=== PATIENT | male | born 1990 | race Caucasian/White ===

== ENCOUNTER 2017-08-29 03:40 | Observation (INO) | payer BC ==
[2017-08-29] MEDS ORDERED: Ondansetron ODT TAB* 4 MG PO ONE (04:06)
[2017-08-29] MEDS ORDERED: Meclizine TAB* 12.5 MG PO ONE (04:07)
[2017-08-29 04:44] LABS: ABS Basophils 0.1 10^3/ul (0-0.2); ABS Eosinophils 0.2 10^3/ul (0-0.6); ABS Lymphocytes 1.6 10^3/ul (1.0-4.8); ABS Monocytes 0.7 10^3/ul (0-0.8); ABS Nucleated RBC 0 10^3/ul; Eosinophil % 1.8 % (0-6); Hematocrit 39 % (42-52); Hemoglobin 13.7 g/dl (14.0-18.0); Lymphocyte % 19.1 % (25-47); Mean Corpuscular HGB Conc 35 g/dl (31-36); Mean Corpuscular Hemoglobin 30 pg (27-31); Mean Corpuscular Volume 87 fL (80-94); Mean Platelet Volume 8 um3 (7.4-10.4); Nucleated Red Blood Cells % 0; Platelet Count 288 10^3/ul (150-450); Red Blood Count 4.51 10^6/ul (4.0-5.4); Red Cell Distribution Width 13 % (10.5-15); White Blood Count 8.6 10^3/ul (3.5-10.8)
[2017-08-29 04:59] LABS: EGFR Non-African American 94.7 (>60)
[2017-08-29] MEDS ORDERED: Diazepam SYRINGE* 5 MG/ML 2 ML SYRINGE (10 MG total) IV ONE (05:56)
--- NOTE | 2017-08-29 06:42 | ED ---
Mitch Martínez Gabriel, scribed for Jose Alfredo Keith on 08/29/17 at 0402 . Dizziness - HPI Summary HPI Summary: This patient is a 27 year old M presenting to [facility] accompanied by his significant other with a chief complaint of dizziness since [place]. Symptoms are aggravated by moving his head rapidly. Patient reports nausea. Patient denies fever, CP, and SOB. Patient had two teeth pulled on 08/26/17 and is having dizzy spells he describes as the room spinning. - History Of Current Complaint Chief Complaint: EDDizziness Stated Complaint: DIZZY SPELLS/2 DAYS Time Seen by Provider: 08/29/17 03:56 Hx Obtained From: Patient Onset/Duration: Suddenly Timing: Constant Severity Initially: Moderate Severity Currently: Moderate Character: Room Spinning Aggravating Factor(s): Change In Head Position Associated Signs And Symptoms: Positive: Nausea, Vomiting. Negative: Fever - Allergies/Home Medications Allergies/Adverse Reactions: Allergies Allergy/AdvReac Type Severity Reaction Status Date / Time Erythromycin [From Pediazole] Allergy Intermediate Hives Verified 08/13/14 07:25 Sulfisoxazole Allergy Intermediate Hives Verified 08/13/14 07:25 [From Pediazole] PMH/Surg Hx/FS Hx/Imm Hx Endocrine/Hematology History: Denies: Hx Diabetes, Hx Thyroid Disease Cardiovascular History: Denies: Hx Hypertension Respiratory History: Denies: Hx Asthma, Hx Chronic Obstructive Pulmonary Disease (COPD) GI History: Denies: Hx Ulcer - Cancer History Cancer Type, Location and Year: last tetanus 2 0r 3 yrs ago - Surgical History Surgery Procedure, Year, and Place: tubes in ears as a child - Immunization History Date of Tetanus Vaccine: unk Date of Influenza Vaccine: unk Infectious Disease History: No Infectious Disease History: Reports: History Other Infectious Disease - lyme in high school Denies: Hx Hepatitis, Hx Human Immunodeficiency Virus (HIV), Traveled Outside the [place] in Last 30 Days - Family History Known Family History: Positive: Unknown - patient states he is unsure, poor historian - Social History Alcohol Use: None Substance Use Type: Reports: None Smoking Status (MU): Never Smoked Tobacco Type: eCigarettes Review of Systems Negative: Fever Negative: Chest Pain Negative: Shortness Of Breath Positive: Nausea Neurological: Other - dizziness All Other Systems Reviewed And Are Negative: Yes Physical Exam - Summary Physical Exam Summary: Appearance: Well appearing, no pain distress Skin: warm, dry, reflects adequate perfusion Head/face: normal Eyes: EOMI, [place] ENT: normal Neck: supple, non-tender Respiratory: CTA, breath sounds present Cardiovascular: RRR, pulses symmetrical Abdomen: non-tender, soft Bowel: present Musculoskeletal: normal, strength/ROM intact Neuro: normal, sensory motor intact, A&Ox3 Triage Information Reviewed: Yes Vital Signs Reviewed: Yes Diagnostics - Laboratory Lab Results: Lab Results 08/29/17 08/29/17 Range/Units 04:32 04:32 WBC 8.6 (3.5-10.8) 10^3/ul RBC 4.51 (4.0-5.4) 10^6/ul Hgb 13.7 L (14.0-18.0) g/dl Hct 39 L (42-52) % MCV 87 (80-94) fL MCH 30 (27-31) pg MCHC 35 (31-36) g/dl RDW 13 (10.5-15) % Plt Count 288 (150-450) 10^3/ul MPV 8 (7.4-10.4) um3 Neut % (Auto) 70.0 (38-83) % Lymph % (Auto) 19.1 L (25-47) % [place] % (Auto) 8.1 (1-9) % Eos % (Auto) 1.8 (0-6) % Baso % (Auto) 1.0 (0-2) % Absolute Neuts (auto) 6.0 (1.5-7.7) 10^3/ul Absolute Lymphs (auto) 1.6 (1.0-4.8) 10^3/ul Absolute Monos (auto) 0.7 (0-0.8) 10^3/ul Absolute Eos (auto) 0.2 (0-0.6) 10^3/ul Absolute Basos (auto) 0.1 (0-0.2) 10^3/ul Absolute Nucleated RBC 0 10^3/ul Nucleated RBC % 0 Sodium 137 (133-145) mmol/L Potassium 4.2 (3.5-5.0) mmol/L Chloride 104 (101-111) mmol/L Carbon Dioxide 28 (22-32) mmol/L Anion Gap 5 (2-11) mmol/L BUN 20 (6-24) mg/dL Creatinine 0.96 (0.67-1.17) mg/dL Est GFR ( Amer) 121.8 (>60) Est GFR (Non-Af Amer) 94.7 (>60) BUN/Creatinine Ratio 20.8 H (8-20) Glucose 95 (70-100) mg/dL Calcium 9.8 (8.6-10.3) mg/dL Total Bilirubin 0.50 (0.2-1.0) mg/dL AST 31 (13-39) U/L ALT 44 (7-52) U/L Alkaline Phosphatase 68 (34-104) U/L Troponin I 0.00 (<0.04) ng/mL Total Protein 7.2 (6.4-8.9) g/dL Albumin 4.4 (3.2-5.2) g/dL Globulin 2.8 (2-4) g/dL Albumin/Globulin Ratio 1.6 (1-3) Result Diagrams: 08/29/17 04:32 08/29/17 04:32 Lab Statement: Any lab studies that have been ordered have been reviewed, and results considered in the medical decision making process. - EKG 04:21 Cardiac Rate: NL EKG Rhythm: Sinus Rhythm EKG Interpretation: No acute changes Dizzy Course/Dx - Diagnoses Provider Diagnoses: Vertigo Discharge - Discharge Plan Condition: Stable Disposition: OTHER Discharge Disposition Comment: Patient is signed out to Dr. Pierre, pending disposition, awaiting imaging a Referrals: No Primary Care Phys,NOPCP [Primary Care Provider] - The documentation as recorded by the Mitch pollock Gabriel accurately reflects the service I personally performed and the decisions made by Sagar morrow Emmanuel.
[2017-08-29] MEDS ORDERED: Ondansetron INJ* 2 MG/ML VIAL IV ONE ×2 (06:45→10:04)
[2017-08-29] MEDS ORDERED: Diazepam INJ (NF) 5 MG/ML 10 ML VIAL (50 MG TOTAL) IV ONE (07:00)
[2017-08-29] MEDS ORDERED: Metoclopramide IV* 5 MG/ML 2 ML VIAL IV ONE (07:09)
[2017-08-29] MEDS ORDERED: Metoclopramide IV* 5 MG/ML 2 ML VIAL ONE (07:10)
[2017-08-29] MEDS ORDERED: LORazepam INJ* 2 MG/ML 1 ML VIAL IV PUSH ONE (07:51)
[2017-08-29] MEDS ORDERED: PROCHLORPERAZINE INJ 5 MG/ML 2 ML VIAL IV PRN (10:09)
[2017-08-29] MEDS ORDERED: Ondansetron INJ* 2 MG/ML VIAL IV PRN (10:09)
--- NOTE | 2017-08-29 10:59 | ED ---
Devendra Martínez Tecjoon, scribed for Kevin Pierre MD on 08/29/17 at 0823 . Progress - Progress Note Progress Note: This patient was signed out by Dr. Keith at end of shift, awaiting disposition and diagnosis. Re-Eval at 0825. Patient continues to have dizziness, nausea, vomiting. Patient states "room is spinning" PHYSICAL EXAM VITAL SIGNS: Reviewed. GENERAL: Patient is an obese male who is lying in the stretcher. Patient is not in any acute respiratory distress. HEAD AND FACE: No signs of trauma. No ecchymosis, hematomas or skull depressions. No sinus tenderness. EYES: PERRLA, EOMI x 2, No injected conjunctiva, no nystagmus. EARS: Hearing grossly intact. Ear canals and tympanic membranes are within normal limits. MOUTH: Oropharynx within normal limits. NECK: Supple, trachea is midline, no adenopathy, no JVD, no carotid bruit, no c- spine tenderness, neck with full ROM. CHEST: Symmetric, no tenderness at palpation LUNGS: Clear to auscultation bilaterally. No wheezing or crackles. CVS: Regular rate and rhythm, S1 and S2 present, no murmurs or gallops appreciated. ABDOMEN: Soft, non-tender. No signs of distention. No rebound no guarding, and no masses palpated. Bowel sounds are normal. EXTREMITIES: FROM in all major joints, no edema, no cyanosis or clubbing. NEURO: Alert and oriented x 3. No acute neurological deficits. Speech is normal and follows commands. Patient is extremely dizzy and nauseous. SKIN: Dry and warm Course/Dx - Course Course Of Treatment: This patient is a 27 year old M presenting to [facility] accompanied by his significant other with a chief complaint of dizziness since [place]. Symptoms are aggravated by moving his head rapidly. Patient reports nausea. Patient denies fever, CP, and SOB. Patient had two teeth pulled on 08/26 and is having dizzy spells he describes as the room spinning. CT Head reveals, per radiologist, No acute brain parenchymal abnormality and no change since 01/05/08. No hemorrhage, mas or acute territorial infarct. Clear visualized sinuses. Visualized mastoid air cells clear. ED physician has reviewed this radiology report. At re-eval 0820, patient states he continues to have dizziness, nausea, and vomiting. They state that the "room is spinning". The physical exam is normal except for continued dizziness. We discussed patient care with Dr. Scott at 0833 and they agreed to admit the patient. We discussed patient care with Dr. Torres (Neurology) at 0835 and they agree with the decision to admit the patient. He said patient should be observed further, with no MRI. - Diagnoses Provider Diagnoses: Dizziness, Intractable vomiting - Provider Notifications Discussed Care Of Patient With: Shalonda Scott Time Discussed With Above Provider: 08:33 - We discussed patient care with Dr. Scott and they agreed to admit the patient. Consult Consult: We discussed patient care with Dr. Torres (Neurology) at 0835 and they agree with the decision to admit the patient. He said patient should be observed further, with no MRI. The documentation as recorded by the Devendra pollock Tecjoon accurately reflects the service I personally performed and the decisions made by , Kevin Pierre MD.
--- NOTE | 2017-08-29 11:09 | RAD ---
INDICATION: Dizziness COMPARISON: CT of the brain dated January 05, 2008 TECHNIQUE: Contiguous axial sections of the brain were obtained from the skull base to the vertex without contrast. FINDINGS: The ventricles, cisterns and sulci are within normal limits. The mendez-white matter differentiation is adequately maintained and there is no sulcal effacement. No significant focal abnormality or mass effect is present. There is no evidence for intracranial hemorrhage. No significant focal osseous abnormality is present. The visualized portion of the paranasal sinuses appear clear. The mastoid air cells are well aerated bilaterally. IMPRESSION: Normal CT of the brain.
[2017-08-29] MEDS: Diazepam TAB(*) 2 MG PO SCH ×2 (11:51→19:25)
[2017-08-29] MEDS ORDERED: Scopolamine 1.5 mg* PATCH TRANSDERM SCH (12:00)
[2017-08-29] MEDS: NS 0.9% 1000 ML* 1,000 ML IV SCH ×2 (12:09→21:01)
[2017-08-29] MEDS ORDERED: Clindamycin VIAL(*) 450 MG in NS 0.9% 50 ML* 50 ML IVPB SCH (14:00)
[2017-08-29] MEDS: CLINDAMYCIN IV 300 MG in D5W IV SCH ×2 (15:30→23:36)
[2017-08-29] MEDS: Meclizine TAB* 12.5 MG PO SCH (16:36)
[2017-08-29] MEDS: Acetaminophen TAB* 325 MG PO PRN (19:32)
--- NOTE | 2017-08-29 21:10 | HP ---
HOSPITAL MEDICINE HISTORY AND PHYSICAL: DATE OF ADMISSION: 08/29/17 PRIMARY CARE PHYSICIAN: None. ATTENDING PHYSICIAN: DO Agustín Franklin (dictation provided by Kathi Duke NP ) CHIEF COMPLAINT: Vertigo. HISTORY OF PRESENT ILLNESS: Mr. Cerna is a 27-year-old male with a past medical history of what he describes as advanced Lyme disease treated by Dr. Porfirio Boo in [place] who presents today to the hospital with concern for vertigo. Mr. Cerna states that as a teenager, he had odd collection of symptoms. He is a poor historian and does not remember all the details. However, he states that he did have issues with what could be described as visual hallucinations where he would see people that were not there. He also was reported to have had some cardiac issue related to his apparent Lyme disease. He was seen here in our community by Dr. 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 However, he went on to be evaluated by Dr. Porfirio Boo in [place] and was diagnosed with Lyme disease. The patient states he was on medication for quite a long period of time, but no longer has any symptoms of that. The patient states that on this week , he had 2 upper right molars pulled and had been on antibiotics. On Wednesday evening, he went to work. 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 While at work, he had 1 episode of dizziness that resolved. He felt ok on Wednesday during the day but again had vertigo after trying to go to work on Wednesday overnight. On returning home a bit early, he was very dizzy and ultimately felt so ill that he lay on the floor in his kitchen. He was then brought to the emergency room. In the emergency room, the patient has been very vertiginous and vomiting. The patient had labs, which were unremarkable. His serum alcohol level is less than 10. He had a CT brain, which showed normal CT of the brain. The patient was given IV fluids and antiemetics as well as meclizine and transitioned to the floor for observation. PAST MEDICAL HISTORY: Question of Lyme disease. MEDICATIONS: Outpatient, none. ALLERGIES: ERYTHROMYCIN and SULFISOXAZOLE. FAMILY HISTORY: The patient is unaware of any positive family history. SOCIAL HISTORY: The patient is a light smoker. He is not quantifying exactly how much to me today. He drinks alcohol very rarely. No report of drug use including marijuana. REVIEW OF SYSTEMS: A 14-point review of systems was completed with Mr. Cerna and all those not mentioned above were negative. PHYSICAL EXAMINATION GENERAL: Mr. Cerna is lying in the bed. He appears uncomfortable. He is holding his head in his hands. He has been vomiting. VITAL SIGNS: Temperature 97.6, pulse rate 68, respiratory rate 22, blood pressure 148/81. HEENT: The patient has had evidence of removal of 2 teeth in the right upper jaw. There is no erythema, no redness, no drainage. LUNGS: Clear to auscultation bilaterally with no accessory muscle use and good aeration. HEART: S1, S2. No murmur, rub, or gallop, and regular. ABDOMEN: Soft, nontender with bowel sounds positive x4. EXTREMITIES: No cyanosis or edema. NEURO: He is alert, he is oriented x3. He moves all extremities equally. There is no facial asymmetry or focal weakness. He does have vertical nystagmus most notably to the left at midline. SKIN: Intact. LABORATORY DATA/DIAGNOSTIC STUDIES: WBC 8.6, hemoglobin 13.7, hematocrit 39, platelet count 288. Sodium 137, potassium 4.2, chloride 104, serum bicarbonate 28, BUN 20, creatinine 0.96, glucose 95. Serum alcohol less than 10. CT brain: Normal CT of the brain. ASSESSMENT: Mr. Cerna is a 27-year-old male with a past medical history of diagnosis of Lyme disease made by a pediatric Lyme specialist in [place] who presents to the hospital today with concern for acute onset vertigo. Our plans are for observation in the hospital for the followin. Vertigo: I suspect the patient has benign paroxysmal positional vertigo or possibly labyrinthitis or vestibulitis. He has clear nystagmus. The patient's family is very concerned that there is some other etiology that is more concerning for his vertigo and are demanding transfer to [facility]. At this point, I do not see any indication for transfer. They have agreed to have a neurology consult and therefore I have asked Dr. Torres from Neurology to consult. In the meantime, the patient will have Valium, scopolamine, meclizine , Compazine, and Zofran for symptomatic management as well as IV fluids. 2. DVT prophylaxis, with early mobility. DISPOSITION: To the medical floor. TIME SPENT: Approximately 60 minutes was spent on admission of this patient, and more than half of the time spent with the patient at the bedside reviewing the events leading up to this hospitalization, performing the physical examination, and reviewing my plan of care. KATHI DUKE NP [id number]/[facility] #: [id number] MIKY
[2017-08-30] MEDS: Meclizine TAB* 12.5 MG PO SCH ×2 (00:42→06:31)
--- NOTE | 2017-08-30 01:30 | CONS ---
NEUROLOGY CONSULTATION: DATE OF CONSULT: 08/29/17 LOCATION: Inpatient. REQUESTING PROVIDER: Kathi Dkue NP REASON FOR CONSULT: Vertigo. HISTORY OF PRESENT ILLNESS: Tyree Cerna is a 27-year-old man with morbid obesity who came into the emergency department overnight with episodes of vertigo. On 08/26/17, he had a couple of teeth pulled from the right upper jaw which he says had been bothering him for quite some time. 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 While at work, he had the onset of episodes of vertigo, which seemed to be brought on with position changes and lasted about 10 minutes a piece or less. He felt normal in between these episodes. He was able to manage to stay at work and then felt better when he got home in the morning on 08/28/17. He went to sleep and when he woke up to go back to work on 08/28/17 at 7 p.m., he was able to do so but then again had the onset of episodes of vertigo while he was working. He again states that these were initially episodic and he would take frequent breaks at work and then was able to go back to working. He finished his work early and came home around 2 a.m. this morning and remarked to his girlfriend that he was very dizzy. He went to the kitchen counter and became very dizzy and then had to lower himself onto the ground and so she brought him into the emergency room for further evaluation. Since he has been here, his vertigo has become a more constant issue and he has been vomiting and dry heaving. He has been treated in the emergency department with multiple doses of Zofran as well as Reglan, meclizine, 2 mg of diazepam and 1 mg of Ativan. He has had some symptomatic relief but remains vertiginous with nausea. His mom and his girlfriend who were at the bedside report this the best they have seen him since he has gotten to the hospital. He denies any preceding URI symptoms. As mentioned, he did have two teeth extracted a couple of days prior to the onset of these symptoms but has had no fevers. He denies any slurring of his speech, dysphagia, extremity weakness or numbness. When his eyes are open, he reports that the world is rotating to the right but otherwise denies any new vision changes. He denies any hearing changes or tinnitus. His neck has been a little bit sore with this but there has been no head trauma or neck trauma recently. His mother mentions that he had a head trauma when he was 12 years old or so where he says he could not move his right side and had to learn how to speak again. He was playing a game with friends at summer camp when he hit his head on a cement wall. She also reports that he had advanced Lyme disease infection and saw a physician in [place] when he was in his mid teens who prescribed two years of antibiotics. She reports cardiac and neurological complications of this Lyme infection though he had some imaging here in 2005 including an MRI scan and a SPECT scan, which were overall unremarkable. He denies any significant history of headaches and has a bit of a mild headache associated with these current symptoms. PAST MEDICAL HISTORY: 1. Lyme disease at age 16, treated with 2 years of antibiotics. 2. Morbid obesity. 3. Hypertension, not on medications. 4. GERD. 5. Reported history of concussion/closed head injury more than 15 years ago. HOME MEDICATIONS: 1. Tums p.r.n. 2. Zantac p.r.n. 3. Keflex 500 mg three times daily. 4. Percocet 3 times daily as needed for recent tooth extraction. 5. Ibuprofen 800 mg three times daily as needed for recent tooth extraction. ALLERGIES: ERYTHROMYCIN causes hives and SULFASOXAZOLE causes hives. FAMILY HISTORY: Mother reports history of strokes and heart attacks on her side of the family as well as DVTs and PE's. The patient's grandmother had a PE in postoperative setting when she was 32. No known significant neurological history on the father side. 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 He lives with his girlfriend who is 16 weeks . He smokes 4 or 5 cigarettes daily when he is working, less when he is at home. He denies any alcohol or drug use. REVIEW OF SYSTEMS: As per the HPI. Otherwise negative. PHYSICAL EXAM: Vital Signs: Temperature 97.4, blood pressure 134/82, heart rate 61, and oxygen saturation 98% on room air. On general examination, he is sitting semi-upright in his hospital bed with his eyes closed and appears uncomfortable. He is able to contribute to the history though appears significantly nauseated and most of the encounter was done with his eyes closed. With his eyes closed, I can see that there is some nystagmus. For most of the visit, he had his head slightly turned towards the left. His heart is in a regular rate and rhythm with no murmurs, rubs or gallops. Lungs are clear to auscultation bilaterally. Skin was intact without any rashes. There is no joint erythema or swelling. His affect is normal. No nuchal rigidity. On neurologic examination, he is fully awake, alert and oriented. His speech is full without dysarthria or aphasia. On cranial nerve examination, his pupils were equal, round and reactive from 5 to 3 mm bilaterally. His versions are full. On neutral gaze, he has nystagmus with a fast component towards the right and some rotatory component as well. Nystagmus is worse when looking towards the left and essentially resolved when looking towards the right. His visual alfaro are full. Facial sensation and musculatures were full and symmetric. Hearing is intact to voice. The palate elevates symmetrically and the tongue is midline. On motor examination, he has normal bulk and tone in the upper and lower extremities. Strength is full proximally and distally with no pronator drift. Sensation is intact to light touch and pinprick in the upper and lower extremities,. Reflexes are 2+ throughout. With his eyes closed , he is able to touch his nose with both fingers. DIAGNOSTIC STUDIES/LAB DATA: His CBC is notable only for low hematocrit of 39 and hemoglobin of 13.7. He has normal white blood cell count with slightly low lymphocyte percentage of 19.1. His chemistry profile is overall unremarkable aside from a very slightly elevated BUN to creatinine ratio of 20.8. His alcohol level is less than 10. His brain CT was obtained and personally reviewed and it was a normal study. IMPRESSION: Tyree Cerna is a 27-year-old man who comes in with episodic vertigo for the last 2 days, which has been increasing in severity. This was initially positional and consisted of discrete episodes but now has coalesced in to a more constant vertigo. He has nystagmus on neutral gaze as well as when looking to the left. I think he most likely has either benign paroxysmal positional vertigo or vestibular neuritis. I did an Tommy maneuver in the room and advised him to stay relatively upright for at least the next 8 hours. He is getting symptomatic treatment with scopolamine patch as well as Valium at this point. He is also on scheduled meclizine and has other anti-nausea medication available as well. We will see how he is feeling tomorrow after the maneuver and symptomatic treatment. Thank you for this consultation. [id number]/[facility] #: [id number] MIKY
[2017-08-30] MEDS: Diazepam TAB(*) 2 MG PO SCH ×2 (03:08→11:28)
[2017-08-30] MEDS: NS 0.9% 1000 ML* 1,000 ML IV SCH (05:32)
[2017-08-30] MEDS: CLINDAMYCIN IV 300 MG in D5W IV SCH ×3 (07:33→22:52)
--- NOTE | 2017-08-30 09:14 | PN ---
Subjective Date of Service: 08/30/17 Interval History: Patient seen and examined at bedside. This is a 27 yo male who presented yesterday to the ED with intractable vertigo that started after dental extraction a few days prior. He is s/p Tommy maneuver yesterday, which made him feel better. He reports that he was able to sleep and his vertigo resolved. However, he has had a return of dizziness and discomfort. He reports feeling hungry and not eating much over the past 2-3 days. He would like to try some regular food. Denies fever/chills, confusion, slurred speech, CP, SOB. Significant other at bedside. Family History: Unchanged from Admission Social History: Unchanged from Admission Past Medical History: Unchanged from Admission Objective Active Medications: Acetaminophen (Tylenol Tab*) 650 mg PO Q6H PRN PRN Reason: PAIN Last Admin: 08/29/17 19:32 Dose: 650 mg Diazepam (Valium Tab(*)) 2 mg PO Q8H [facility] Last Admin: 08/30/17 03:08 Dose: 2 mg Sodium Chloride (Ns 0.9% 1000 Ml*) 1,000 mls @ 125 mls/hr IV PER RATE [facility] Last Admin: 08/30/17 05:32 Dose: 125 mls/hr Clindamycin HCl/Dextrose (Cleocin 300 Mg Ivpemix(*)) 300 mg in 50 mls @ 200 mls /hr IV Q8H [facility] Last Admin: 08/30/17 07:33 Dose: 200 mls/hr Meclizine HCl (Antivert Tab*) 25 mg PO Q8HR [facility] Last Admin: 08/30/17 06:31 Dose: 25 mg Ondansetron HCl (Zofran Inj*) 4 mg IV Q6H PRN PRN Reason: NAUSEA Pharmacy Profile Note (Scopolamine Patch Remove*) 1 note PATCH OFF 1200 FAM Prochlorperazine Edisylate (Compazine Inj*) 10 mg IV Q6H PRN PRN Reason: NAUSEA/VOMITING Scopolamine (Transderm-Scop 1.5 Mg Patch*) 1 patch TRANSDERM Q72H [facility] Last Admin: 08/29/17 12:08 Dose: 1 patch Vital Signs - 8 hr 08/30/17 08/30/17 08/30/17 03:08 03:16 03:22 Temperature 98.5 F Pulse Rate 26 56 Respiratory 16 16 Rate Blood Pressure 122/59 (mmHg) O2 Sat by Pulse 97 99 Oximetry 08/30/17 08/30/17 05:42 07:45 Temperature 98.7 F Pulse Rate 50 Respiratory 16 16 Rate Blood Pressure 133/62 (mmHg) O2 Sat by Pulse 98 Oximetry Oxygen Devices in Use Now: None Appearance: Young male, lying in bed, appears uncomfortable Eyes: No Scleral Icterus Ears/Nose/Mouth/Throat: Clear Oropharnyx, Mucous Membranes Moist, - - No pus/ bleeding/drainage noted from dental extraction site Neck: NL Appearance and Movements; NL JVP Respiratory: Symmetrical Chest Expansion and Respiratory Effort, Clear to Auscultation Cardiovascular: NL Sounds; No Murmurs; No JVD, RRR Abdominal: NL Sounds; No Tenderness; No Distention Extremities: No Edema, No Clubbing, Cyanosis Skin: No Rash or Ulcers Neurological: Alert and Oriented x 3, - - no nystagmus noted Lines/Tubes/Other Access: Clean, Dry and Intact Peripheral IV Nutrition: Taking PO's Result Diagrams: 08/29/17 04:32 08/29/17 04:32 Additional Lab and Data: Lab Results 08/29/17 08/29/17 Range/Units 04:32 04:32 WBC 8.6 (3.5-10.8) 10^3/ul RBC 4.51 (4.0-5.4) 10^6/ul Hgb 13.7 L (14.0-18.0) g/dl Hct 39 L (42-52) % MCV 87 (80-94) fL MCH 30 (27-31) pg MCHC 35 (31-36) g/dl RDW 13 (10.5-15) % Plt Count 288 (150-450) 10^3/ul MPV 8 (7.4-10.4) um3 Neut % (Auto) 70.0 (38-83) % Lymph % (Auto) 19.1 L (25-47) % [place] % (Auto) 8.1 (1-9) % Eos % (Auto) 1.8 (0-6) % Baso % (Auto) 1.0 (0-2) % Absolute Neuts (auto) 6.0 (1.5-7.7) 10^3/ul Absolute Lymphs (auto) 1.6 (1.0-4.8) 10^3/ul Absolute Monos (auto) 0.7 (0-0.8) 10^3/ul Absolute Eos (auto) 0.2 (0-0.6) 10^3/ul Absolute Basos (auto) 0.1 (0-0.2) 10^3/ul Absolute Nucleated RBC 0 10^3/ul Nucleated RBC % 0 Sodium 137 (133-145) mmol/L Potassium 4.2 (3.5-5.0) mmol/L Chloride 104 (101-111) mmol/L Carbon Dioxide 28 (22-32) mmol/L Anion Gap 5 (2-11) mmol/L BUN 20 (6-24) mg/dL Creatinine 0.96 (0.67-1.17) mg/dL Est GFR ( Amer) 121.8 (>60) Est GFR (Non-Af Amer) 94.7 (>60) BUN/Creatinine Ratio 20.8 H (8-20) Glucose 95 (70-100) mg/dL Calcium 9.8 (8.6-10.3) mg/dL Total Bilirubin 0.50 (0.2-1.0) mg/dL AST 31 (13-39) U/L ALT 44 (7-52) U/L Alkaline Phosphatase 68 (34-104) U/L Troponin I 0.00 (<0.04) ng/mL Total Protein 7.2 (6.4-8.9) g/dL Albumin 4.4 (3.2-5.2) g/dL Globulin 2.8 (2-4) g/dL Albumin/Globulin Ratio 1.6 (1-3) Assess/Plan/Problems-Billing Assessment: Mr. Cerna is a 27 yo male with a PMH of Lyme disease who presented to the ED on 08/29/17 with concern for acute onset vertigo. - Patient Problems (1) Vertigo Code(s): R42 - DIZZINESS AND GIDDINESS Comment: Slightly improved today per patient; still with dizziness Appears to be secondary to BPPV S/p Tommy maneuver by neurology Appreciate neurology input Continue prn diazepam, meclizine (2) S/P tooth extraction Comment: No evidence of infection Previously on oral antibiotic Continue IV clindamycin, switch to oral abx once taking PO (3) DVT prophylaxis Comment: Encourage early mobility Status and Disposition: OBV admit. D/c to home when medically stable.
[2017-08-30] MEDS: Acetaminophen TAB* 325 MG PO PRN (10:12)
[2017-08-30] MEDS ORDERED: Diazepam TAB(*) 2 MG PO PRN (11:02)
--- NOTE | 2017-08-30 23:30 | PN ---
PROGRESS NOTE: DATE OF FOLLOWUP: 08/30/17 HISTORY: No acute overnight events. The patient has improved compared to my evaluation yesterday. He reports he is no longer spinning, but still feels a nonspecific sense of dizziness whenever he moves his head and when he goes to walk. He feels off balance, but again denies any vertigo and feels that the Tommy maneuver yesterday was helpful. He continues on IV fluids and scheduled benzodiazepines as well as meclizine. He was able to tolerate a normal breakfast this morning and is asking for lunch. He wonders when he will be able to go home, but is worried about needing to go back to work tomorrow night. MEDICATIONS: 1. Tylenol 650 q. 6 p.r.n. 2. Clindamycin 300 mg q. 8 hours. 3. Diazepam 2 mg q. 8 hours. 4. Meclizine 25 mg q. 8 hours. 5. Zofran 4 mg IV p.r.n. (not recently given). 6. Scopolamine patch placed yesterday. PHYSICAL EXAMINATION: Vital Signs: Temperature 98.7, blood pressure 133/62, heart rate 50, oxygen saturation 98% on room air. On general examination, he was initially sleeping with a sleep mask over his eyes when I entered the room, but he awoke easily. He was able to open his eyes and engage with the examiner today. A focused neurologic examination showed resolution of the previously noted nystagmus. He did not have any clear nystagmus in any directions of gaze today and not on primary gaze either. His face is symmetric. His speech is clear without any dysarthria or aphasia. He has full strength in his upper and lower extremities. He did become dizzy when changing positions when asked to stand up at the bedside, but no nystagmus emerged when this occurred. His Romberg was positive with him falling backwards , not to any particular side. IMPRESSION: Peripheral vertigo, improved after Tommy maneuver yesterday. I suggest discontinuing his IV fluids and changing his scheduled diazepam and meclizine over to p.r.n. This will help us better gauge his symptoms at this point and whether he can be discharged home. If needed I would send him home with Valium q. 8 hours as needed as he has been receiving in the hospital. I discussed with him that if needed vestibular rehab can be done as an outpatient and would recommend Pedro Sevilla. If things do not improve to his baseline as an outpatient as well, I will be happy to see him in followup in my office. [id number]/[facility] #: [id number] MIKY
[2017-08-31] MEDS: CLINDAMYCIN IV 300 MG in D5W IV SCH (06:15)
[2017-08-31] MEDS: Meclizine TAB* 12.5 MG PO PRN ×2 (06:15→15:23)
--- NOTE | 2017-08-31 11:31 | PN ---
Subjective Date of Service: 08/31/17 Interval History: Patient seen and examined at bedside. He is sitting up in bed, eating breakfast. Describes new onset dizziness that occurred while he was eating. States the "room spinning" stopped after Tommy maneuver done on day of admission but had episode of room spinning this morning. He now denies any further room spinning but does endorse dizziness. Denies n/v. Also reports not sleeping well overnight but states he slept in the afternoon yesterday. He is very worried about returning home and being dizzy all the time. He took meclizine around 0700 this am but no diazepam. He has not noticed any significant difference with meclizine. No other complaint. He states he has been up to ambulate once and states he needed to reach out and grab onto objects to feel steady. Family History: Unchanged from Admission Social History: Unchanged from Admission Past Medical History: Unchanged from Admission Objective Active Medications: Acetaminophen (Tylenol Tab*) 650 mg PO Q6H PRN PRN Reason: PAIN Last Admin: 08/30/17 10:12 Dose: 650 mg Diazepam (Valium Tab(*)) 2 mg PO Q8H PRN PRN Reason: vertigo Last Admin: 08/31/17 09:36 Dose: 2 mg Clindamycin HCl/Dextrose (Cleocin 300 Mg Ivpemix(*)) 300 mg in 50 mls @ 200 mls /hr IV Q8H [facility] Last Admin: 08/31/17 06:15 Dose: 200 mls/hr Meclizine HCl (Antivert Tab*) 25 mg PO Q8HR PRN PRN Reason: DIZZINESS Last Admin: 08/31/17 06:15 Dose: 25 mg Ondansetron HCl (Zofran Inj*) 4 mg IV Q6H PRN PRN Reason: NAUSEA Pharmacy Profile Note (Scopolamine Patch Remove*) 1 note PATCH OFF 1200 FAM Prochlorperazine Edisylate (Compazine Inj*) 10 mg IV Q6H PRN PRN Reason: NAUSEA/VOMITING Scopolamine (Transderm-Scop 1.5 Mg Patch*) 1 patch TRANSDERM Q72H [facility] Last Admin: 08/29/17 12:08 Dose: 1 patch Vital Signs - 8 hr 08/31/17 08/31/17 08/31/17 03:46 03:53 09:36 Temperature 98.0 F Pulse Rate 45 48 Respiratory 16 16 Rate Blood Pressure 145/60 (mmHg) O2 Sat by Pulse 100 Oximetry Oxygen Devices in Use Now: None Appearance: Male patient, sitting up in bed, NAD Eyes: No Scleral Icterus, PERRLA, - - no nystagamus Ears/Nose/Mouth/Throat: Clear Oropharnyx, Mucous Membranes Moist Neck: NL Appearance and Movements; NL JVP Respiratory: Symmetrical Chest Expansion and Respiratory Effort, Clear to Auscultation Cardiovascular: NL Sounds; No Murmurs; No JVD, RRR Abdominal: NL Sounds; No Tenderness; No Distention Extremities: No Edema Neurological: Alert and Oriented x 3, NL Muscle Strength and Tone, - - no nystagmus noted with positional change, EOMI, no focal deficits noted Lines/Tubes/Other Access: Clean, Dry and Intact Peripheral IV Nutrition: Taking PO's Result Diagrams: 08/29/17 04:32 08/29/17 04:32 Additional Lab and Data: Lab Results 08/29/17 08/29/17 Range/Units 04:32 04:32 WBC 8.6 (3.5-10.8) 10^3/ul RBC 4.51 (4.0-5.4) 10^6/ul Hgb 13.7 L (14.0-18.0) g/dl Hct 39 L (42-52) % MCV 87 (80-94) fL MCH 30 (27-31) pg MCHC 35 (31-36) g/dl RDW 13 (10.5-15) % Plt Count 288 (150-450) 10^3/ul MPV 8 (7.4-10.4) um3 Neut % (Auto) 70.0 (38-83) % Lymph % (Auto) 19.1 L (25-47) % [place] % (Auto) 8.1 (1-9) % Eos % (Auto) 1.8 (0-6) % Baso % (Auto) 1.0 (0-2) % Absolute Neuts (auto) 6.0 (1.5-7.7) 10^3/ul Absolute Lymphs (auto) 1.6 (1.0-4.8) 10^3/ul Absolute Monos (auto) 0.7 (0-0.8) 10^3/ul Absolute Eos (auto) 0.2 (0-0.6) 10^3/ul Absolute Basos (auto) 0.1 (0-0.2) 10^3/ul Absolute Nucleated RBC 0 10^3/ul Nucleated RBC % 0 Sodium 137 (133-145) mmol/L Potassium 4.2 (3.5-5.0) mmol/L Chloride 104 (101-111) mmol/L Carbon Dioxide 28 (22-32) mmol/L Anion Gap 5 (2-11) mmol/L BUN 20 (6-24) mg/dL Creatinine 0.96 (0.67-1.17) mg/dL Est GFR ( Amer) 121.8 (>60) Est GFR (Non-Af Amer) 94.7 (>60) BUN/Creatinine Ratio 20.8 H (8-20) Glucose 95 (70-100) mg/dL Calcium 9.8 (8.6-10.3) mg/dL Total Bilirubin 0.50 (0.2-1.0) mg/dL AST 31 (13-39) U/L ALT 44 (7-52) U/L Alkaline Phosphatase 68 (34-104) U/L Troponin I 0.00 (<0.04) ng/mL Total Protein 7.2 (6.4-8.9) g/dL Albumin 4.4 (3.2-5.2) g/dL Globulin 2.8 (2-4) g/dL Albumin/Globulin Ratio 1.6 (1-3) Assess/Plan/Problems-Billing Assessment: Mr. Cerna is a 27 yo male with a PMH of Lyme disease who presented to the ED on 08/29/17 with concern for acute onset vertigo. - Patient Problems (1) Vertigo Code(s): R42 - DIZZINESS AND GIDDINESS Comment: Patient reports return of vertiginous symptoms Appears to be secondary to BPPV, ? vestibular neuritis S/p Tommy maneuver by neurology Appreciate neurology input Continue prn diazepam, meclizine - plan to give one dose diazepam now PT consult to evaluate gait and safety with vertigo (2) S/P tooth extraction Comment: No evidence of infection D/c IV clindamycin, resume cephalexin (3) DVT prophylaxis Comment: Encourage early mobility Status and Disposition: OBV admit. D/c to home when medically stable.
[2017-08-31 11:36] VITALS: BP 143/64
[2017-08-31] MEDS ORDERED: Cephalexin CAP* 500 MG PO SCH ×2 (14:00→14:36)
--- NOTE | 2017-09-01 01:43 | PN ---
PROGRESS NOTE: DATE OF FOLLOWUP: 08/31/17 HISTORY: This morning, the patient experienced 2 to 3 additional episodes of self- limited vertigo. He reports everything was spinning to the right. He was given meclizine around 6 a.m., which they feel did not help, and then 2 mg of diazepam around 9:30 and he has been doing well since then. He was assessed by Physical Therapy and it felt that overall his balance was good and he had no giselle loss of balance while ambulating. MEDICATIONS: 1. Tylenol 650 q. 6 p.r.n. 2. Diazepam 2 mg q. 8 p.r.n. 3. Meclizine 25 mg q. 8 p.r.n. 4. Scopolamine patch q. 72 hours applied on 08/29. PHYSICAL EXAM: Vital Signs: Temperature 97.6, blood pressure 143/64, heart rate 52, oxygen saturation 98% on room air. On general examination, he was in no acute distress, lying in his hospital bed. He was able to sit up without experiencing increase in dizziness. He had no nystagmus on primary gaze and no nystagmus elicited in any directions of gaze. His face is symmetric. His speech is clear. He has full strength in his upper and lower extremities. The [place]-Hallpike procedure was performed to the right and to the left and was negative for eliciting symptoms or nystagmus. IMPRESSION: Peripheral vertigo in a 27-year-old man. He symptomatically improved with Valium and then when this was taken off on routine scheduled basis and given only p.r.n., he had recurrence of brief symptoms this morning. My evaluation of him occurred about 6 hours after he last received diazepam, but there was no clearly elicited symptoms at all with [place]-Hallpike. This is more likely a vestibular neuritis. I have educated him and his girlfriend on the likely cause of this illness and that he can be discharged home with diazepam to use as needed, but that he should try to limit use as much as possible as any vestibular therapy that he engages in will be less effective on this medication. He has been given the contact information for physical therapy to arrange as an outpatient. 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 He has also been advised against driving until his symptoms calm down more continuously. I will see him back in my office in 1 week at 2:30 on the to assess how he is doing and determine whether he can return to work without restrictions at that time or if needs to be out for a longer period. He does not currently have a primary care provider, but his girlfriend is going to try to get him in with Dr. Guajardo who is her primary care provider. [id number]/[facility] #: [id number] MIKY
--- NOTE | 2017-09-01 02:25 | DS ---
MEDICINE DISCHARGE SUMMARY: DATE OF ADMISSION: 08/29/17 DATE OF DISCHARGE: 08/31/17 ATTENDING PHYSICIAN: Maida Tapia MD * (dictated by Verónica Garcia NP). CONSULTING PHYSICIAN: Kiera Torres MD, Neurology. PRIMARY CARE PROVIDER: No PCP. PRIMARY DISCHARGE DIAGNOSIS: Vertigo. SECONDARY DISCHARGE DIAGNOSES: 1. Recent tooth extractions. 2. Reported history of pediatric Lyme disease. MEDICATIONS AT DISCHARGE: 1. Ibuprofen 800 mg q.8 hours p.r.n. 2. [place] 5/325 one tab t.i.d. p.r.n. 3. Keflex 500 mg t.i.d. 4. Tylenol 650 mg p.r.n. 5. Diazepam 2 mg q.8 hours p.r.n. vertigo. 6. Ondansetron ODT 4 mg q.8 hours p.r.n. nausea or vomiting. HOSPITAL COURSE OF STAY: For full details, please refer to the H and P provided by Kathi Duke NP. In summary, this is a 27-year-old male patient who presented to the ER with concern for dizziness that started on Wednesday evening. It progressed to room spinning and vertiginous symptoms and the patient became so dizzy and ill feeling that he had to lie down on the floor of his kitchen and was brought into the emergency room consequently. Accompanying symptoms included vomiting. Of note he recently had some tooth extractions on and was placed on antibiotics. Here in the hospital, his labs and CT brain were unremarkable and the patient was started on IV fluids, antiemetics, meclizine, and diazepam. He was also seen by Neurology, performed Tommy maneuver on admission which did provide some relief. The following day on 08/30/17, Mr. Cerna continued to complain of some dizziness, but stated that the vertiginous symptoms of room spinning had improved. On 08/31/17, he woke up with some initial vertigo which did resolve, but he still complained of dizziness; however, he was able to get up with physical therapy and ambulate in the hallway without assistance or need to hold on. We discussed having outpatient vestibular rehab with physical therapist, Pedro Sevilla. Additionally , Neurology came back to see the patient given his complaints this morning. A [place]- Hallpike maneuver was performed on the patient. No nystagmus was seen and did not notice any vertiginous symptoms, perhaps secondary to the recent meclizine and diazepam the patient had received earlier in the morning. In any event, he felt well enough to go home. We discussed utilizing diazepam as needed for his symptoms as well as alaina Farr. 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 He has an appointment to follow up with Dr. Torres on 09/07/17. He has been given a work note. He is in agreement with this plan. Outpatient followup needs: The patient needs a primary care provider which is being arranged through our technical planner. He will need to follow up with Dr. Torres as scheduled next week. He has been advised to call Dr. Torres's office if there are any concerns in the interim period following discharge. DIET: Will resume previous diet. ACTIVITY: As tolerated. CONDITION: Improved, stable. DISPOSITION: To home. TIME SPENT: Time spent on this discharge was approximately 50 minutes. This is only a brief summary of the patient's hospital course of stay. For full details, please refer to the full medical record. If you have any further questions or need further assistance, please feel free to contact me at [phone]. VERÓNICA GARCIA NP [id number]/[facility] #: [id number] MIKY
[2017-09-01] MEDS ORDERED: Scopolamine PATCH Remove* 1 NOTE MISC PATCH OFF SCH (12:00)
--- NOTE | 2017-09-02 22:43 | ED ---
Mitch Martínez Gabriel, scribed for Jose Alfredo Keith on 08/29/17 at 0649 . Progress - Progress Note Progress Note: CT Head reveals, per radiologist, No acute brain parenchymal abnormality and no change since 01/05/08. No hemorrhage, mas or acute territorial infarct. Clear visualized sinuses. Visualized mastoid air cells clear. ED physician has reviewed this radiology report. Course/Dx - Diagnoses Provider Diagnoses: Vertigo The documentation as recorded by the Mitch pollock Gabriel accurately reflects the service I personally performed and the decisions made by Sagar morrow Emmanuel.
== END 2017-08-31 16:15 | disposition home or self-care (01) ==
LOC: ED 03:40 → MED 10:08
PROVIDERS: ADMIT Hospitalist; ATTEND Internal Medicine
DX: R42 Dizziness and giddiness (principal); R11.10 Vomiting, unspecified; E66.01 Morbid (severe) obesity due to excess calories; I10 Essential (primary) hypertension; K21.9 Gastro-esophageal reflux disease without esophagitis; H55.00 Unspecified nystagmus; F17.210 Nicotine dependence, cigarettes, uncomplicated; Z79.899 Other long term (current) drug therapy
CPT/HCPCS: 36415; 70450; 80053; 80320; 84484; 85025; 93005; 96374; 96375; 99284; A9270-GY; G0378; G0480; J2060; J2405; J2765; J3360